=== PATIENT | female | born 1960 | race Caucasian/White ===

== ENCOUNTER 2021-08-30 18:56 | Emergency (ER) | payer BC, SELFPAY ==
[2021-08-30 19:19] LABS: #Lymphocytes 1.7 thou/uL (1.20-3.40); #Monocytes 0.4 thou/uL (0.11-0.59); #Neutrophils 1.4 thou/uL (1.40-6.50); %Eosinophils 0.9 % (0.0-10.0); %Lymphocytes 47.4 % (21.0-51.0); %Monocytes 11.2 % (0.0-10.0); %Neutrophils 39.5 % (42.0-75.0); Hemoglobin 13.9 g/dL (12.0-16.0); Mean Corpuscular HGB CONC 34.9 g/dL (32.0-36.0); Mean Corpuscular Hemoglobin 33.1 pg (27.0-31.0); Mean Corpuscular Volume 94.9 fL (78.0-98.0); Mean Platelet Volume 6.2 fL (7.4-10.4); Platelet Count 128 thou/uL (130-400); RBC Distribution Width 13.5 % (11.5-14.5); White Blood Cell (WBC) Count 3.5 thou/uL (4.8-10.8)
[2021-08-30 19:40] LABS: ALT (SGPT) 29 U/L (8-55); AST (SGOT) 56 U/L (5-34); Albumin 3.6 g/dL (3.5-5.0); Alcohol 355 mg/dL (Less than 10); Alkaline Phosphatase 114 U/L (40-110); Anion Gap 12 mmol/L (10-20); BUN (Urea Nitrogen) 9 mg/dL (9.8-20.1); Bilirubin, Total 1.4 mg/dL (0.2-1.2); Calc. Creatinine Clearance 0 mL/min (70-130); Calcium 7.7 mg/dL (7.8-10.44); Carbon Dioxide 31 mmol/L (22-29); Chloride 93 mmol/L (98-107); Globulin 2.4 g/dL (2.4-3.5); Glucose 95 mg/dL (70-105); Lipase 39 U/L (8-78); Potassium 3.9 mmol/L (3.5-5.1); Sodium 132 mmol/L (136-145)
[2021-08-30 19:45] LABS: Bacteria/HPF None Seen HPF (None Seen); Bilirubin Negative (Negative); Blood, Urine Trace (Negative); Clarity Clear (Clear); Glucose, Urine (Dipstick) Normal (Negative); Ketone, Urine Negative (Negative); Leukocyte Negative Leu/uL (Negative); Nitrite Negative (Negative); Protein, Urine (Dipstick) Negative (Neg-Trace); RBC/HPF None Seen HPF (0-3); Specific Gravity, Urine 1.012 (1.002-1.036); Squamous Epithelial None Seen HPF (0-3); Urobilinogen Normal mg/dL (Less than 2); WBC/HPF 0-3 HPF (0-3); pH, Urine 5.5 (5.0-9.0)
== END 2021-08-30 20:14 | disposition home or self-care (01) ==
LOC: ERS 18:56
DX: F10.129 Alcohol abuse with intoxication, unspecified (principal); Y90.8 Blood alcohol level of 240 mg/100 ml or more
CPT/HCPCS: 36415; 36416; 51701; 80053; 80307; 81003; 81015; 82274; 83605; 83690; 85025; 86850; 86900; 86901

== ENCOUNTER 2022-05-16 19:04 | Inpatient (IN) | payer BC ==
[2022-05-16 19:53] LABS: Hemoglobin 14.5 g/dL (12.0-16.0); Mean Corpuscular HGB CONC 35.7 g/dL (32.0-36.0); Mean Corpuscular Hemoglobin 31.3 pg (27.0-31.0); Mean Corpuscular Volume 87.8 fl (78.0-98.0); RBC Distribution Width 13.1 % (11.5-14.5); Red Blood Cell (RBC) Count 4.63 mill/uL (4.20-5.40); White Blood Cell (WBC) Count 4.2 10x3/uL (4.8-10.8)
[2022-05-16 20:06] LABS: Acetaminophen Less than 10.0 mcg/mL (10.0-30.0); Alcohol 137 mg/dL (Less than 10); CK (CPK) 1728 U/L (29-168); Salicylate Less than 8.0 mg/dL (15.0-30.0)
[2022-05-16 20:10] LABS: ALT (SGPT) 107 U/L (8-55); AST (SGOT) 225 U/L (5-34); Albumin 4.6 g/dL (3.5-5.0); Alkaline Phosphatase 206 U/L (40-110); Anion Gap 30 mmol/L (10-20); BUN (Urea Nitrogen) 28 mg/dL (9.8-20.1); Bilirubin, Total 1.4 mg/dL (0.2-1.2); Calc. Creatinine Clearance 0 mL/min (70-130); Chloride 89 mmol/L (98-107); Estimated GFR 56; Globulin 2.6 g/dL (2.4-3.5); Glucose 65 mg/dL (70-105); Magnesium 2.5 mg/dL (1.6-2.6); Potassium 2.9 mmol/L (3.5-5.1); Protein, Total 7.2 g/dL (6.0-8.3); Sodium 125 mmol/L (136-145)
[2022-05-16 20:13] LABS: #Lymphocytes 0.6 thou/uL (1.20-3.40); #Monocytes 0.4 thou/uL (0.11-0.59); #Neutrophils 3.2 thou/uL (1.40-6.50); %Basophils 0.2 % (0.0-1.0); %Lymphocytes 14.5 % (21.0-51.0); %Neutrophils 76.3 % (42.0-75.0); Large Platelets SLIGHT; MDiff Complete? YES; Mean Platelet Volume 7.4 fL (7.4-10.4); Platelet Count 88 10x3/uL (130-400); Platelet Morphology Comment Appears Decreased; RBC Morphology Normal
[2022-05-16 20:18] LABS: Carbon Dioxide 9 mmol/L (22-29)
[2022-05-16 20:35] LABS: CKMB 55.1 ng/mL (0-6.6)
[2022-05-16] MEDS ORDERED: Aspirin Chewable 81 MG TAB ONE (20:45)
[2022-05-16] MEDS ORDERED: LORazepam 2 MG/ML SYR.(CARPUJECT) ONE (20:49)
[2022-05-16] MEDS ORDERED: Sodium Bicarbonate 150 MEQ in Dextrose 5% in Water 1,000 ML IVP SCH (21:00)
[2022-05-16 21:13] LABS: Base Excess -17.2 mEq/L (-2.0 to +3.0); Calcium, Ionized (venous) 1.03 mmol/L (1.16-1.32); Chloride (VBG) 94 mmol/L (98-106); Hemoglobin (Hb) 13.4 g/dL (11.7-16.0); Potassium (VBG) 4.39 mmol/L (3.70-5.30); Sodium 124.4 mmol/L (133-146)
[2022-05-16 21:23] LABS: Actual Bicarbonate (HCO3v) 10 mEq/L (22-28); pH (venous) 7.18 (7.32-7.43)
[2022-05-16] MEDS ORDERED: Folic Acid 1 MG in Sodium Chloride 0.9% 50 ML IV SCH (21:30)
[2022-05-16 22:01] LABS: Troponin I 0.374 ng/mL (< 0.028)
[2022-05-16] MEDS ORDERED: Piperacillin/Tazobactam 3.375 GM VIAL ONE (22:29)
[2022-05-16] MEDS ORDERED: Lorazepam 2 MG/ML VIAL IM PRN (22:55)
[2022-05-16] MEDS ORDERED: Acetaminophen 650 MG Suppository PR PRN (22:55)
[2022-05-16] MEDS ORDERED: Lorazepam 1 MG TAB PO PRN (22:55)
[2022-05-16] MEDS ORDERED: Ondansetron ODT 4 MG TAB PO PRN (22:55)
[2022-05-16] MEDS ORDERED: Electrolyte Replacement Protocol 1 EACH FS SCH (23:00)
[2022-05-16 23:30] LABS: SARS-CoV-2 NAA Rapid Test Not Detected (NotDetected)
[2022-05-17 00:14] LABS: #Lymphocytes 0.5 thou/uL (1.20-3.40); #Monocytes 0.3 thou/uL (0.11-0.59); #Neutrophils 2.3 thou/uL (1.40-6.50); %Basophils 0.1 % (0.0-1.0); %Eosinophils 0.3 % (0.0-10.0); %Lymphocytes 16.1 % (21.0-51.0); %Monocytes 10.1 % (0.0-10.0); %Neutrophils 73.4 % (42.0-75.0); Mean Corpuscular Hemoglobin 30.6 pg (27.0-31.0); Mean Corpuscular Volume 87.6 fl (78.0-98.0); Mean Platelet Volume 7.2 fL (7.4-10.4); Platelet Count 72 10x3/uL (130-400); RBC Distribution Width 13.1 % (11.5-14.5); Red Blood Cell (RBC) Count 4.23 mill/uL (4.20-5.40); White Blood Cell (WBC) Count 3.1 10x3/uL (4.8-10.8)
[2022-05-17] MEDS: Lorazepam 1 MG TAB PO SCH ×6 (00:19→23:35)
[2022-05-17 00:31] LABS: Lactic Acid 3.1 mmol/L (0.5-2.2)
[2022-05-17 00:35] LABS: Magnesium 2.2 mg/dL (1.6-2.6)
[2022-05-17 00:37] VITALS: BMI 25.0
[2022-05-17 00:39] LABS: Phosphorus Less than 1.0 mg/dL (2.3-4.7)
[2022-05-17] MEDS: Ondansetron PF 4 MG/2 ML Vial IVP PRN ×4 (00:39→20:36)
[2022-05-17 00:58] LABS: Base Excess (BEa) -13.6 mEq/L (-2.0 to +3.0); Calcium, Ionized (arterial) 1.13 mmol/L (1.12-1.30); Carboxyhemoglobin (COHb) 0.6 gm% (0.0-3.0); Hemoglobin (Hb) 12.8 g/dL (12.0-16.0); O2 Tension (PaO2), arterial 90.6 mmHg (> 80.0); Potassium - ABG Lab 2.73 mmol/L (3.70-5.30); pH, Arterial 7.33 (7.35-7.45)
[2022-05-17 01:00] LABS: CO2 Tension 19.2 mmHg (35.0-45.0); Puncture Site RRA
[2022-05-17] MEDS ORDERED: Potassium Phosphate 30 MMOL in Sodium Chloride 0.9% 250 ML 250 ML IVPB SCH ×2 (01:30→11:00)
[2022-05-17 03:02] LABS: Amphetamine Not Detected (NotDetected); Barbiturates Screen Not Detected (NotDetected); Benzodiazepine Screen Not Detected (NotDetected); Cocaine Metabolite Screen Not Detected (NotDetected); Methadone Not Detected (NotDetected); Methamphetamine Not Detected (NotDetected); Opiate Screen Not Detected (NotDetected); Oxycodone Screen Not Detected (NotDetected); Phencyclidine (PCP) Not Detected (NotDetected); THC/Cannabinoid Screen Not Detected (NotDetected); Tricyclic Screen Not Detected (NotDetected)
[2022-05-17 03:12] LABS: Troponin I 0.425 ng/mL (< 0.028)
[2022-05-17] MEDS: Sodium Chloride 0.9% 1,000 ML IV SCH ×2 (04:00→10:10)
[2022-05-17] MEDS: Piperacillin/Tazobactam 3.375 GM in Sodium Chloride 0.9% 100 ML IVPB SCH ×3 (04:04→20:35)
[2022-05-17] MEDS ORDERED: Potassium Chloride 20 MEQ TAB PO SCH ×2 (08:00→13:00)
[2022-05-17 08:26] LABS: Lactic Acid 0.7 mmol/L (0.5-2.2)
[2022-05-17 08:37] LABS: #Lymphocytes 0.5 thou/uL (1.20-3.40); #Monocytes 0.5 thou/uL (0.11-0.59); %Eosinophils 0.1 % (0.0-10.0); %Lymphocytes 12.5 % (21.0-51.0); %Monocytes 12.4 % (0.0-10.0); Hemoglobin 12.3 g/dL (12.0-16.0); Mean Corpuscular HGB CONC 35.4 g/dL (32.0-36.0); Mean Corpuscular Hemoglobin 31.1 pg (27.0-31.0); Mean Corpuscular Volume 87.8 fl (78.0-98.0); Mean Platelet Volume 7.2 fL (7.4-10.4); Platelet Count 71 10x3/uL (130-400); RBC Distribution Width 13.2 % (11.5-14.5); Red Blood Cell (RBC) Count 3.95 mill/uL (4.20-5.40)
[2022-05-17 08:39] LABS: Anion Gap 22 mmol/L (10-20); BUN (Urea Nitrogen) 22 mg/dL (9.8-20.1); Calc. Creatinine Clearance 53 mL/min (70-130); Calcium 7.9 mg/dL (7.8-10.44); Carbon Dioxide 11 mmol/L (22-29); Chloride 99 mmol/L (98-107); Estimated GFR 49; Glucose 78 mg/dL (70-105); Sodium 129 mmol/L (136-145)
[2022-05-17 08:49] LABS: Potassium 2.6 mmol/L (3.5-5.1)
[2022-05-17 09:01] LABS: HBSAg Index 0.27 S/CO (0-0.99); Hep A IgM AB Non-Reactive (NonReactive); Hep A IgM S/CO 0.21 S/CO (0-0.79); Hep B Surf Ag Non-Reactive S/CO (NonReactive); Hep C IgG Ab Non-Reactive (NonReactive); Hep C Index 0.05 S/CO (0-0.79); Hepatitis B Core IgM Abs Non-Reactive (NonReactive)
[2022-05-17 09:37] LABS: Syphilis Antibody Nonreactive (Nonreactive); Syphilis Antibody Index 0.04 S/CO (<1.00 Non-Reactive)
[2022-05-17 09:58] LABS: Phosphorus 1.4 mg/dL (2.3-4.7)
[2022-05-17 10:04] LABS: Troponin I 0.433 ng/mL (< 0.028)
[2022-05-17] MEDS: Multivit, Therapeutic 1 TAB PO SCH (10:09)
[2022-05-17] MEDS: Folic Acid 1 MG TAB PO SCH (10:10)
[2022-05-17] MEDS: Acetaminophen 325 MG TAB PO PRN (10:16)
[2022-05-17] MEDS ORDERED: Prochlorperazine Edisylate 10 MG in Sodium Chloride 0.9% 50 ML IVPB PRN (10:59)
[2022-05-17] MEDS ORDERED: PHOS-NAK 1 PKT PACK PO SCH (11:00)
[2022-05-17 12:26] LABS: Anion Gap 19 mmol/L (10-20); BUN (Urea Nitrogen) 22 mg/dL (9.8-20.1); Calc. Creatinine Clearance 51 mL/min (70-130); Calcium 7.8 mg/dL (7.8-10.44); Carbon Dioxide 13 mmol/L (22-29); Chloride 101 mmol/L (98-107); Estimated GFR 47; Glucose 96 mg/dL (70-105); Lipase 663 U/L (8-78); Magnesium 2.2 mg/dL (1.6-2.6); Potassium 2.7 mmol/L (3.5-5.1); Sodium 130 mmol/L (136-145)
[2022-05-17] MEDS: Sodium Bicarbonate 140 MEQ in Dextrose 5% in Water 1,000 ML IV SCH ×2 (12:39→20:36)
[2022-05-17] MEDS: Multivitamins, Adult 10 ML, Folic Acid 1 MG, Thiamine HCl 100 MG in Dextrose 5 %-0.45 %... IV SCH (12:39)
[2022-05-17 17:22] LABS: Anion Gap 16 mmol/L (10-20); BUN (Urea Nitrogen) 19 mg/dL (9.8-20.1); Calc. Creatinine Clearance 54 mL/min (70-130); Calcium 7.9 mg/dL (7.8-10.44); Carbon Dioxide 16 mmol/L (22-29); Chloride 102 mmol/L (98-107); Estimated GFR 50; Glucose 207 mg/dL (70-105); Potassium 2.9 mmol/L (3.5-5.1); Sodium 131 mmol/L (136-145)
[2022-05-17] MEDS ORDERED: Lorazepam 1 MG TAB PO PRN (22:56)
[2022-05-17 23:24] LABS: Bacteria/HPF 4+ HPF (None Seen); Bilirubin 1+ (Negative); Blood, Urine 3+ (Negative); CAUTI Indications for Culture Alt mental st,lethar; Clarity Extra Turbid (Clear); Glucose, Urine (Dipstick) Normal (Negative); Ketone, Urine 10 mg/dL (Negative); Leukocyte 500 Leu/uL (Negative); Nitrite Negative (Negative); Protein, Urine (Dipstick) 30 mg/dL (Neg-Trace); RBC/HPF 21-50 HPF (0-3); Specific Gravity, Urine 1.007 (1.002-1.036); Squamous Epithelial None Seen HPF (0-3); Urobilinogen Normal mg/dL (Less than 2); WBC/HPF Greater than 50 HPF (0-3); pH, Urine 7.5 (5.0-9.0)
[2022-05-17 23:26] LABS: Urine Culture Reflex Yes Yes
[2022-05-18] MEDS: Piperacillin/Tazobactam 3.375 GM in Sodium Chloride 0.9% 100 ML IVPB SCH ×3 (04:50→20:59)
[2022-05-18 04:57] LABS: ALT (SGPT) 77 U/L (8-55); AST (SGOT) 121 U/L (5-34); Albumin 3.1 g/dL (3.5-5.0); Alkaline Phosphatase 144 U/L (40-110); Anion Gap 9 mmol/L (10-20); BUN (Urea Nitrogen) 13 mg/dL (9.8-20.1); Bilirubin, Total 1.2 mg/dL (0.2-1.2); CK (CPK) 602 U/L (29-168); Calc. Creatinine Clearance 71 mL/min (70-130); Calcium 8.4 mg/dL (7.8-10.44); Carbon Dioxide 25 mmol/L (22-29); Chloride 105 mmol/L (98-107); Estimated GFR 69; Globulin 2.2 g/dL (2.4-3.5); Glucose 143 mg/dL (70-105); Lipase Greater than 1000 U/L (8-78); Phosphorus Less than 1.0 mg/dL (2.3-4.7); Potassium 2.3 mmol/L (3.5-5.1); Protein, Total 5.3 g/dL (6.0-8.3); Sodium 137 mmol/L (136-145)
[2022-05-18] MEDS: Lorazepam 1 MG TAB PO SCH ×3 (05:11→17:07)
[2022-05-18] MEDS: Sodium Bicarbonate 140 MEQ in Dextrose 5% in Water 1,000 ML IV SCH ×2 (05:11→17:43)
[2022-05-18] MEDS: Potassium Chloride 20 MEQ in Premix Bag 1 BAG IVPB SCH ×4 (06:40→12:28)
[2022-05-18] MEDS ORDERED: Magnesium 2 GM/50 ML(in water) 2 GM in Premix Bag 1 BAG IVPB SCH (08:00)
[2022-05-18] MEDS ORDERED: Potassium Phosphate 30 MMOL in Sodium Chloride 0.9% 500 ML IVPB SCH (09:00)
[2022-05-18] MEDS: Metoprolol Tartrate 25 MG TAB PO SCH ×2 (09:24→20:59)
[2022-05-18] MEDS: Multivit, Therapeutic 1 TAB PO SCH (09:24)
[2022-05-18] MEDS: Folic Acid 1 MG TAB PO SCH (09:24)
[2022-05-18] MEDS: Ondansetron PF 4 MG/2 ML Vial IVP PRN ×2 (09:33→21:55)
[2022-05-18] MEDS: Multivitamins, Adult 10 ML, Folic Acid 1 MG, Thiamine HCl 100 MG in Dextrose 5 %-0.45 %... IV SCH (11:22)
[2022-05-18 18:42] LABS: Anion Gap 11 mmol/L (10-20); BUN (Urea Nitrogen) 9 mg/dL (9.8-20.1); Calc. Creatinine Clearance 86 mL/min (70-130); Carbon Dioxide 30 mmol/L (22-29); Chloride 105 mmol/L (98-107); Estimated GFR 88; Glucose 120 mg/dL (70-105); Magnesium 2.8 mg/dL (1.6-2.6); Phosphorus 1.6 mg/dL (2.3-4.7); Potassium 2.7 mmol/L (3.5-5.1); Sodium 143 mmol/L (136-145)
[2022-05-18] MEDS: Potassium Chloride 20 MEQ TAB PO SCH (21:48)
[2022-05-18] MEDS: Lorazepam 0.5 MG TAB PO SCH (22:00)
[2022-05-18] MEDS ORDERED: Lorazepam 1 MG TAB PO PRN (22:56)
[2022-05-19] MEDS ORDERED: Potassium Chloride 20 MEQ TAB PO SCH ×3 (01:30→21:00)
[2022-05-19] MEDS: PHOS-NAK 1 PKT PACK PO SCH (02:39)
[2022-05-19] MEDS: Potassium Chloride 20 MEQ TAB PO SCH (02:39)
[2022-05-19] MEDS: Ondansetron PF 4 MG/2 ML Vial IVP PRN ×3 (03:01→23:56)
[2022-05-19] MEDS: Piperacillin/Tazobactam 3.375 GM in Sodium Chloride 0.9% 100 ML IVPB SCH ×3 (04:15→21:08)
[2022-05-19] MEDS: Lorazepam 0.5 MG TAB PO SCH ×3 (04:15→17:57)
[2022-05-19 07:42] LABS: #Eosinphils 0.1 thou/uL (0.0-0.7); #Lymphocytes 0.9 thou/uL (1.20-3.40); #Monocytes 0.6 thou/uL (0.11-0.59); #Neutrophils 3.1 thou/uL (1.40-6.50); %Basophils 0.1 % (0.0-1.0); %Eosinophils 1.7 % (0.0-10.0); %Lymphocytes 18.7 % (21.0-51.0); %Monocytes 12.7 % (0.0-10.0); %Neutrophils 66.9 % (42.0-75.0); Hemoglobin 11.1 g/dL (12.0-16.0); Mean Corpuscular HGB CONC 35.3 g/dL (32.0-36.0); Mean Corpuscular Hemoglobin 31.3 pg (27.0-31.0); Mean Corpuscular Volume 88.5 fl (78.0-98.0); Mean Platelet Volume 7.3 fL (7.4-10.4); Platelet Count 68 10x3/uL (130-400); RBC Distribution Width 13.7 % (11.5-14.5); Red Blood Cell (RBC) Count 3.54 mill/uL (4.20-5.40); White Blood Cell (WBC) Count 4.7 10x3/uL (4.8-10.8)
[2022-05-19 07:50] LABS: INR-International Normal Ratio 0.9; Prothrombin Time 12.8 sec (12.0-14.7)
[2022-05-19 08:13] LABS: ALT (SGPT) 69 U/L (8-55); AST (SGOT) 97 U/L (5-34); Alkaline Phosphatase 121 U/L (40-110); Anion Gap 8 mmol/L (10-20); BUN (Urea Nitrogen) 8 mg/dL (9.8-20.1); Bilirubin, Total 0.9 mg/dL (0.2-1.2); Calc. Creatinine Clearance 90 mL/min (70-130); Calcium 7.8 mg/dL (7.8-10.44); Carbon Dioxide 32 mmol/L (22-29); Chloride 105 mmol/L (98-107); Estimated GFR 93; Globulin 1.7 g/dL (2.4-3.5); Glucose 118 mg/dL (70-105); Protein, Total 4.7 g/dL (6.0-8.3); Sodium 142 mmol/L (136-145)
[2022-05-19 08:26] LABS: Lipase 1195 U/L (8-78)
[2022-05-19] MEDS: Sodium Bicarbonate 140 MEQ in Dextrose 5% in Water 1,000 ML IV SCH (09:41)
[2022-05-19] MEDS: Multivit, Therapeutic 1 TAB PO SCH (09:43)
[2022-05-19] MEDS: Folic Acid 1 MG TAB PO SCH (09:43)
[2022-05-19] MEDS: Metoprolol Tartrate 25 MG TAB PO SCH ×2 (09:43→21:07)
[2022-05-19] MEDS: Acetaminophen 325 MG TAB PO PRN ×2 (13:53→23:56)
[2022-05-19] MEDS: Loperamide HCl 2 MG CAP PO PRN ×2 (14:01→17:53)
[2022-05-19] MEDS: Multivitamins, Adult 10 ML, Folic Acid 1 MG, Thiamine HCl 100 MG in Dextrose 5 %-0.45 %... IV SCH (16:56)
[2022-05-19 18:02] LABS: Anion Gap 9 mmol/L (10-20); BUN (Urea Nitrogen) 7 mg/dL (9.8-20.1); Calc. Creatinine Clearance 90 mL/min (70-130); Calcium 8.3 mg/dL (7.8-10.44); Carbon Dioxide 32 mmol/L (22-29); Chloride 104 mmol/L (98-107); Estimated GFR 93; Glucose 123 mg/dL (70-105); Magnesium 2.2 mg/dL (1.6-2.6); Potassium 3.3 mmol/L (3.5-5.1); Sodium 142 mmol/L (136-145)
[2022-05-19 18:07] LABS: Phosphorus 1.3 mg/dL (2.3-4.7)
[2022-05-19] MEDS ORDERED: Potassium Phosphate 30 MMOL in Sodium Chloride 0.9% 500 ML IVPB SCH (18:45)
[2022-05-19] MEDS ORDERED: Thiamine 100 MG TAB PO SCH (21:00)
[2022-05-19] MEDS: Sodium Chloride 0.9% 1,000 ML IV SCH (21:08)
[2022-05-20] MEDS: Lorazepam 0.5 MG TAB PO PRN ×4 (00:01→23:02)
[2022-05-20] MEDS: Piperacillin/Tazobactam 3.375 GM in Sodium Chloride 0.9% 100 ML IVPB SCH ×3 (04:09→20:05)
[2022-05-20 04:42] LABS: Band 3 % (5-11); Eosinophils 1 % (0-10); Hemoglobin 10.9 g/dL (12.0-16.0); Hypochromia SLIGHT = 6-15 cells (100X) (0-5/hpf); Lymphocytes 16 % (21-51); MDiff Complete? YES; Mean Corpuscular HGB CONC 34.5 g/dL (32.0-36.0); Mean Corpuscular Hemoglobin 31.4 pg (27.0-31.0); Mean Platelet Volume 7.5 fL (7.4-10.4); Monocytes 14 % (0-10); Neutrophil 66 % (42-75); Platelet Count 84 10x3/uL (130-400); Platelet Morphology Comment Appears Decreased; Red Blood Cell (RBC) Count 3.48 mill/uL (4.20-5.40); White Blood Cell (WBC) Count 4.8 10x3/uL (4.8-10.8)
[2022-05-20 05:01] LABS: ALT (SGPT) 65 U/L (8-55); AST (SGOT) 66 U/L (5-34); Albumin 2.8 g/dL (3.5-5.0); Alkaline Phosphatase 107 U/L (40-110); Anion Gap 10 mmol/L (10-20); BUN (Urea Nitrogen) 6 mg/dL (9.8-20.1); Bilirubin, Total 0.7 mg/dL (0.2-1.2); Calc. Creatinine Clearance 90 mL/min (70-130); Carbon Dioxide 28 mmol/L (22-29); Chloride 109 mmol/L (98-107); Estimated GFR 93; Globulin 2.1 g/dL (2.4-3.5); Glucose 96 mg/dL (70-105); Lipase 508 U/L (8-78); Phosphorus 3.6 mg/dL (2.3-4.7); Potassium 3.8 mmol/L (3.5-5.1); Protein, Total 4.9 g/dL (6.0-8.3); Sodium 143 mmol/L (136-145)
[2022-05-20] MEDS: Sodium Chloride 0.9% 1,000 ML IV SCH (06:56)
[2022-05-20] MEDS ORDERED: Lorazepam 2 MG/ML VIAL SLOW IVP SCH ×2 (08:15→14:45)
[2022-05-20] MEDS: Potassium Chloride 20 MEQ in Lactated Ringer's 1,000 ML IV SCH ×2 (09:41→19:55)
[2022-05-20] MEDS: Multivit, Therapeutic 1 TAB PO SCH (09:46)
[2022-05-20] MEDS: Folic Acid 1 MG TAB PO SCH (09:46)
[2022-05-20] MEDS: Metoprolol Tartrate 25 MG TAB PO SCH ×2 (09:46→20:04)
[2022-05-20] MEDS: Ondansetron PF 4 MG/2 ML Vial IVP PRN ×2 (10:25→20:04)
[2022-05-20] MEDS: Acetaminophen 325 MG TAB PO PRN (13:13)
[2022-05-20] MEDS: Loperamide HCl 2 MG CAP PO PRN (13:14)
[2022-05-20] MEDS ORDERED: Lorazepam 2 MG/ML VIAL ONE (14:03)
[2022-05-20] MEDS: Multivitamins, Adult 10 ML, Folic Acid 1 MG, Thiamine HCl 100 MG in Dextrose 5 %-0.45 %... IV SCH (16:16)
[2022-05-20] MEDS: Lorazepam 1 MG TAB PO SCH ×2 (16:25→20:04)
[2022-05-21] MEDS: Lorazepam 1 MG TAB PO SCH ×7 (01:17→23:43)
[2022-05-21] MEDS: Ipratropium/Albuterol 3 ML NEB NEB PRN ×2 (01:26→16:37)
[2022-05-21 04:25] LABS: Band 4 % (5-11); Lymphocytes 15 % (21-51); MDiff Complete? YES; Mean Corpuscular HGB CONC 34.3 g/dL (32.0-36.0); Mean Corpuscular Hemoglobin 31.6 pg (27.0-31.0); Mean Corpuscular Volume 92.1 fl (78.0-98.0); Mean Platelet Volume 8.5 fL (7.4-10.4); Monocytes 17 % (0-10); Neutrophil 64 % (42-75); Platelet Count 131 10x3/uL (130-400); Platelet Morphology Comment Appears Adequate; RBC Distribution Width 14.6 % (11.5-14.5); RBC Morphology Normal; Red Blood Cell (RBC) Count 4.12 mill/uL (4.20-5.40); White Blood Cell (WBC) Count 8.1 10x3/uL (4.8-10.8)
[2022-05-21] MEDS: Piperacillin/Tazobactam 3.375 GM in Sodium Chloride 0.9% 100 ML IVPB SCH (05:21)
[2022-05-21] MEDS: Potassium Chloride 20 MEQ in Lactated Ringer's 1,000 ML IV SCH (05:26)
[2022-05-21 06:31] LABS: Albumin 3.3 g/dL (3.5-5.0)
[2022-05-21 06:32] LABS: Chloride 109 mmol/L (98-107); Potassium 4.4 mmol/L (3.5-5.1); Sodium 141 mmol/L (136-145)
[2022-05-21 06:33] LABS: Calcium 8.5 mg/dL (7.8-10.44); Glucose 91 mg/dL (70-105)
[2022-05-21 06:35] LABS: Anion Gap 14 mmol/L (10-20); Bilirubin, Total 0.7 mg/dL (0.2-1.2); Carbon Dioxide 22 mmol/L (22-29)
[2022-05-21 06:36] LABS: Alkaline Phosphatase 130 U/L (40-110); Calc. Creatinine Clearance 91 mL/min (70-130)
[2022-05-21 06:37] LABS: BUN (Urea Nitrogen) 8 mg/dL (9.8-20.1); Estimated GFR 94
[2022-05-21 06:38] LABS: AST (SGOT) 53 U/L (5-34)
[2022-05-21 06:39] LABS: ALT (SGPT) 63 U/L (8-55); Magnesium 1.7 mg/dL (1.6-2.6)
[2022-05-21 06:41] LABS: Protein, Total 6.3 g/dL (6.0-8.3)
[2022-05-21] MEDS: Folic Acid 1 MG TAB PO SCH (08:18)
[2022-05-21] MEDS: Thiamine 100 MG TAB PO SCH (08:18)
[2022-05-21] MEDS: Metoprolol Tartrate 25 MG TAB PO SCH ×2 (08:18→20:36)
[2022-05-21] MEDS: Multivit, Therapeutic 1 TAB PO SCH (08:19)
[2022-05-21] MEDS ORDERED: Albuterol 200 PUFF (6.7GM INHALER) INH PRN (19:56)
[2022-05-21] MEDS: Acetaminophen 325 MG TAB PO PRN (23:42)
[2022-05-22] MEDS: Lorazepam 1 MG TAB PO SCH ×5 (06:00→20:59)
[2022-05-22 07:16] LABS: ALT (SGPT) 46 U/L (8-55); AST (SGOT) 32 U/L (5-34); Albumin 2.9 g/dL (3.5-5.0); Alkaline Phosphatase 108 U/L (40-110); Anion Gap 12 mmol/L (10-20); BUN (Urea Nitrogen) 7 mg/dL (9.8-20.1); Bilirubin, Total 0.6 mg/dL (0.2-1.2); CK (CPK) 143 U/L (29-168); Calc. Creatinine Clearance 91 mL/min (70-130); Calcium 8.4 mg/dL (7.8-10.44); Carbon Dioxide 25 mmol/L (22-29); Chloride 106 mmol/L (98-107); Estimated GFR 94; Globulin 2.4 g/dL (2.4-3.5); Glucose 111 mg/dL (70-105); Lipase 218 U/L (8-78); Potassium 3.2 mmol/L (3.5-5.1); Protein, Total 5.3 g/dL (6.0-8.3); Sodium 140 mmol/L (136-145)
[2022-05-22] MEDS: Folic Acid 1 MG TAB PO SCH (09:00)
[2022-05-22] MEDS: Metoprolol Tartrate 25 MG TAB PO SCH ×2 (09:00→20:59)
[2022-05-22] MEDS: Thiamine 100 MG TAB PO SCH (09:00)
[2022-05-22] MEDS: Multivit, Therapeutic 1 TAB PO SCH (09:01)
[2022-05-22] MEDS ORDERED: Potassium Chloride 20 MEQ TAB PO SCH (17:30)
[2022-05-22] MEDS: Acetaminophen 325 MG TAB PO PRN (21:05)
[2022-05-23] MEDS: Acetaminophen 325 MG TAB PO PRN (01:00)
[2022-05-23] MEDS: Lorazepam 1 MG TAB PO SCH ×7 (01:00→23:59)
[2022-05-23] MEDS ORDERED: Potassium Chloride 20 MEQ TAB PO SCH (08:00)
[2022-05-23] MEDS: Multivit, Therapeutic 1 TAB PO SCH (08:05)
[2022-05-23] MEDS: Folic Acid 1 MG TAB PO SCH (08:05)
[2022-05-23] MEDS: Metoprolol Tartrate 25 MG TAB PO SCH ×2 (08:05→20:20)
[2022-05-23] MEDS: Thiamine 100 MG TAB PO SCH (08:06)
[2022-05-23] MEDS: Ondansetron PF 4 MG/2 ML Vial IVP PRN (11:16)
[2022-05-24] MEDS: Lorazepam 1 MG TAB PO SCH ×3 (05:14→17:06)
[2022-05-24] MEDS: Metoprolol Tartrate 25 MG TAB PO SCH (08:05)
[2022-05-24] MEDS: Folic Acid 1 MG TAB PO SCH (08:06)
[2022-05-24] MEDS: Multivit, Therapeutic 1 TAB PO SCH (08:06)
[2022-05-24] MEDS: Thiamine 100 MG TAB PO SCH (08:06)
[2022-05-24 08:47] LABS: ALT (SGPT) 41 U/L (8-55); AST (SGOT) 38 U/L (5-34); Alkaline Phosphatase 110 U/L (40-110); Anion Gap 12 mmol/L (10-20); BUN (Urea Nitrogen) 9 mg/dL (9.8-20.1); Bilirubin, Total 0.6 mg/dL (0.2-1.2); Calc. Creatinine Clearance 84 mL/min (70-130); Calcium 8.7 mg/dL (7.8-10.44); Carbon Dioxide 23 mmol/L (22-29); Chloride 108 mmol/L (98-107); Estimated GFR 86; Globulin 2.1 g/dL (2.4-3.5); Glucose 115 mg/dL (70-105); Magnesium 1.6 mg/dL (1.6-2.6); Phosphorus 3.5 mg/dL (2.3-4.7); Potassium 3.1 mmol/L (3.5-5.1); Protein, Total 5.1 g/dL (6.0-8.3); Sodium 140 mmol/L (136-145)
[2022-05-24 08:49] LABS: Band 9 % (5-11); Eosinophils 1 % (0-10); Hypochromia SLIGHT = 6-15 cells (100X) (0-5/hpf); Lymphocytes 17 % (21-51); MDiff Complete? YES; Mean Corpuscular HGB CONC 33.9 g/dL (32.0-36.0); Mean Corpuscular Hemoglobin 31.4 pg (27.0-31.0); Mean Corpuscular Volume 92.6 fl (78.0-98.0); Mean Platelet Volume 6.9 fL (7.4-10.4); Monocytes 13 % (0-10); Neutrophil 56 % (42-75); Platelet Count 340 10x3/uL (130-400); Platelet Morphology Comment Appears Decreased; RBC Distribution Width 15.4 % (11.5-14.5); Reactive Lymphocytes 4 % (0-10); Red Blood Cell (RBC) Count 3.19 mill/uL (4.20-5.40); White Blood Cell (WBC) Count 4.9 10x3/uL (4.8-10.8)
[2022-05-24] MEDS ORDERED: Potassium Chloride 20 MEQ TAB PO SCH (16:15)
[2022-05-24 16:40] VITALS: BP 138/86; TEMP 97.4
== END 2022-05-24 19:05 | disposition home or self-care (01) | DRG 871 ==
LOC: ERS 19:04 → IMCU/EMU 21:07 → T4-B 05-22 16:03
PROVIDERS: ADMIT Student in an Organized Health Care Education/Training Program; ATTEND Internal Medicine
DX: A41.9 Sepsis, unspecified organism (principal); G93.41 Metabolic encephalopathy; K85.20 Alcohol induced acute pancreatitis without necrosis or infection; J96.01 Acute respiratory failure with hypoxia; I21.A1 Myocardial infarction type 2; F10.239 Alcohol dependence with withdrawal, unspecified; E87.20 Acidosis, unspecified; E87.1 Hypo-osmolality and hyponatremia; M62.82 Rhabdomyolysis; N12 Tubulo-interstitial nephritis, not specified as acute or chronic; Z20.822 Contact with and (suspected) exposure to COVID-19; F10.229 Alcohol dependence with intoxication, unspecified; G31.2 Degeneration of nervous system due to alcohol; E88.89 Other specified metabolic disorders; R65.20 Severe sepsis without septic shock; K52.9 Noninfective gastroenteritis and colitis, unspecified; E87.6 Hypokalemia; K70.0 Alcoholic fatty liver; E86.0 Dehydration; D69.6 Thrombocytopenia, unspecified; E83.39 Other disorders of phosphorus metabolism; G47.34 Idiopathic sleep related nonobstructive alveolar hypoventilation; B96.20 Unspecified Escherichia coli [E. coli] as the cause of diseases classified elsewhere; Z79.899 Other long term (current) drug therapy
CPT/HCPCS: 36415; 36416; 36600; 70450; 71045; 72125; 74176; 76705; 80048; 80053; 80074; 80306; 80307; 81001; 82010; 82140; 82248; 82550; 82553; 82805; 83605; 83690; 83735; 83880; 84100; 84145; 84484; 85025; 85610; 86140; 86780; 87040; 87077; 87086; 87186; 87811; 93005; 94640; 96361; 96365; 96367; 96368; 96375; J1650; J2060; J2405; J2543; J3411; J3475; J3480; J3490; J7030; J7042; J7050; J7070; J7120; J7620; U0002